=== PATIENT | female | born 1995 | race Caucasian/White ===

== ENCOUNTER → 2019-09-01 14:02 | Outpatient (CLI) | payer OTHER, SELFPAY ==
[2019-09-01 15:52] LABS: GTT (PREG) 1 Hour PP 50gm Dose 102 mg/dL (76-139)
== END ==
PROVIDERS: Visit Provider Family Medicine
DX: Z34.02 Encounter for supervision of normal first pregnancy, second trimester (principal)
CPT/HCPCS: 36415; 82950

== ENCOUNTER → 2019-10-27 14:09 | Outpatient (CLI) | payer OTHER, SELFPAY ==
[2019-10-28 13:20] LABS: Strep Grp B PCR NEG for Grp B Strep
== END ==
PROVIDERS: Visit Provider Family Medicine
DX: Z34.03 Encounter for supervision of normal first pregnancy, third trimester (principal); Z3A.36 36 weeks gestation of pregnancy
CPT/HCPCS: 87653

== ENCOUNTER 2019-11-10 11:00 | Observation (INO) | payer OTHER, SELFPAY ==
--- NOTE | 2019-11-10 11:07 | DI.US.S_ITS ---
PROCEDURE: US OB BIOPHYSICAL PROFILE INDICATIONS: Maternal hypertension. OUTSIDE/PRIOR DATING DATA: Last menstrual period (LMP): Unknown. LMP-based estimated date of delivery (BEULAH): Unknown. First dating scan (date and location): Unknown. Estimated date of delivery (BEULAH) from first dating scan: 11/23/2019. TECHNIQUE: Real-time scanning was performed of the fetus, with image documentation and biometric measurements. Biophysical profile was also obtained. Endovaginal scanning: Not performed COMPARISON: None available. FINDINGS: General: A single living intrauterine gestation is present. Presentation: Vertex. Placenta: Placental position is left fundal, without previa. Amniotic fluid index: 13.1 cm, normal range is 5-24 cm. (the largest pocket 5.9 cm posterior. heart rate: 135 beats per minute. Maternal cervical canal: Not well-seen. Estimated gestational age from initial scan: 38 weeks 1 day. Composite gestational age from present scan: N/A. Measurement variability for biometric dating: +/- 7 days from 14 weeks to 15 weeks 6 days gestation, +/- 10 days from 16 weeks to 21 weeks 6 days gestation, +/- 2 weeks from 22 weeks to 27 weeks 6 days gestation, +/- 3 weeks for 28 weeks gestation or later. weight reference: 4500 g or EFW >90/95% is considered macrosomia or large for gestational age. EFW <10% is small for gestational age. EFW 5% or less is considered intra-uterine growth restriction. Biophysical profile: Tone: 2 points. Movement: 2 points. Respiration: 2 points. Largest pocket of fluid: 2 points. IMPRESSION: 1. Odom living intrauterine at 38 weeks 1/7 days based on prior ultrasound. 2. Normal placenta and amniotic fluid. 3. Normal biophysical profile. Score 8 of 8. Dictated by: Aleksey Saunders M.D. on 11/10/2019 at 11:58 Approved by: Aleksey Saunders M.D. on 11/10/2019 at 12:07
[2019-11-10 11:58] LABS: Add Manual Diff / Slide Review NO; Basophils Absolute Auto 100 /uL (0-100); Basophils Percent Auto 0.5 % (0-2); Eosinophils Absolute Auto 200 /uL (0-450); Eosinophils Percent Auto 1.7 % (2-4); Hematocrit 35.4 % (36-46); Hemoglobin 11.9 g/dL (12.0-16.0); Lymphocytes Absolute Auto 1800 /uL (1100-4500); Lymphocytes Percent Auto 16.4 % (25-40); Mean Corpuscular HGB Conc 33.7 % (30-36); Mean Corpuscular Hemoglobin 28.3 PG (26-34); Mean Corpuscular Volume 84.1 fL (80-100); Monocytes Absolute Auto 800 /uL (0-900); Monocytes Percent Auto 7.2 % (3-14); Neutrophils Absolute Auto 8300 /uL (1500-7000); Neutrophils Percent Auto 74.2 % (50-75); Platelet Count 237 X10^3/uL (150-400); Red Blood Cell Count 4.21 X10^6/uL (4.0-5.2); Red Cell Distribution Width 13.1 % (11.6-14.8); White Blood Cell Count 11.2 X10^3/uL (4.5-11.0)
[2019-11-10 11:59] LABS: Appearance Urine UA SL CLOUDY; Bacteria Urine None Seen; Bilirubin Urine UA NEGATIVE (NEGATIVE); Color Urine UA YELLOW; Glucose Urine UA NEGATIVE (Negative); Ketones Urine UA NEGATIVE (NEGATIVE); Leukocyte Esterase Urine UA NEGATIVE (NEGATIVE); Nitrite Urine UA NEGATIVE (Negative); Occult Blood Urine UA NEGATIVE (Negative); Protein Urine UA NEGATIVE (Negative); RBC Urine None Seen (0-5/HPF); Urobilinogen Urine UA 0.2 E.U./dL (0.2); WBC Urine None Seen (0-5/HPF)
[2019-11-10 12:04] LABS: Amorphous Sediment Urine 1+; Squamous Epithelial Cell Urine 5-10 /HPF (0-5/HPF)
--- NOTE | 2019-11-10 12:09 | P.TNLD_ITS ---
[facility] Social History marital status: household members: spouse lives independently: Yes caregiver/support person: No housing: house occupational status: employed Smoking Status: Never smoker Objective Labs Result Diagrams: 11/10/19 11:50 11/10/19 11:50 Labs: Laboratory Results - last 24 hr 11/10/19 11/10/19 11:15 11:50 WBC 11.2 H RBC 4.21 Hgb 11.9 L Hct 35.4 L MCV 84.1 MCH 28.3 MCHC 33.7 RDW 13.1 Plt Count 237 Neut % (Auto) 74.2 Lymph % (Auto) 16.4 L [place] % (Auto) 7.2 Eos % (Auto) 1.7 L Baso % (Auto) 0.5 Neut # (Auto) 8300 H Lymph # (Auto) 1800 [place] # (Auto) 800 Eos # (Auto) 200 Baso # (Auto) 100 Urine Color Yellow Urine Appearance Sl cloudy Urine pH 7.0 Ur Specific [place] 1.020 Urine Protein Negative Urine Glucose (UA) Negative Urine Ketones Negative Urine Occult Blood Negative Urine Nitrate Negative Urine Bilirubin Negative Urine Urobilinogen 0.2 Ur Leukocyte Esterase Negative Urine RBC None seen Urine WBC None seen Ur Squamous Epith Cells 5-10 /hpf H Amorphous Sediment 1+ Urine Bacteria None seen Evaluation Evaluation Laboratory results: Laboratory Tests 11/10/19 11/10/19 11:15 11:50 WBC 11.2 H RBC 4.21 Hgb 11.9 L Hct 35.4 L MCV 84.1 MCH 28.3 MCHC 33.7 RDW 13.1 Plt Count 237 Neut % (Auto) 74.2 Lymph % (Auto) 16.4 L [place] % (Auto) 7.2 Eos % (Auto) 1.7 L Baso % (Auto) 0.5 Neut # (Auto) 8300 H Lymph # (Auto) 1800 [place] # (Auto) 800 Eos # (Auto) 200 Baso # (Auto) 100 Urine Color Yellow Urine Appearance Sl cloudy Urine pH 7.0 Ur Specific [place] 1.020 Urine Protein Negative Urine Glucose (UA) Negative Urine Ketones Negative Urine Occult Blood Negative Urine Nitrate Negative Urine Bilirubin Negative Urine Urobilinogen 0.2 Ur Leukocyte Esterase Negative Urine RBC None seen Urine WBC None seen Ur Squamous Epith Cells 5-10 /hpf H Amorphous Sediment 1+ Urine Bacteria None seen
[2019-11-10 12:10] LABS: Alanine Aminotransferase 11 IU/L (<35); Albumin 3.5 g/dL (3.5-5.0); Albumin Globulin Ratio 1.1 (1.0-2.8); Alkaline Phosphatase 131 U/L (38-126); Aspartate Aminotransferase 20 IU/L (14-36); Bilirubin Total 0.3 mg/dL (0.2-1.3); Blood Urea Nitrogen 8 mg/dL (7-17); Calcium 9.8 mg/dL (8.4-10.2); Carbon Dioxide 22 mmol/L (22-32); Chloride 105 mmol/L (98-107); Estimated Glomerular Filt Rate > 60.0 mL/min (>60); Globulin 3.3 g/dL (1.7-4.1); Glucose 74 mg/dL (70-100); HEMOLYSIS < 15 (0-50); Potassium 3.9 mmol/L (3.4-5.1); Sodium 134 mmol/L (137-145); Total Protein 6.8 g/dL (6.3-8.2)
[2019-11-10 12:14] LABS: Creatinine Urine Random 55.2 mg/dL; Protein (Total) Urine Random 23 mg/dL (0-12); Protein Creatinine Ratio Urine 0.41 GRAM/24H
--- NOTE | 2019-11-10 16:30 | P.TNLD_ITS ---
Visit Information Visit Information Date of evaluation: 11/10/19 Primary OB Provider: Jacque Lopez Reason for Evaluation: Yes non-stress test non-stress test reason: hypertension/pre-eclampsia Comments/Additional reasons for admission: 24yo at 38w1d here for NST and lab work due to elevated BP in clinic. Pt with intermittently mildly elevated BPs at home, although not consistent and often related to just coming in from walking outdoors. No headache, vision changes, RUQ pain, worsening swelling. She has overall been feeling well. No vaginal bleeding, LOF, contractions. Feeling baby move regularly. PFSH Social History marital status: household members: spouse lives independently: Yes caregiver/support person: No housing: house occupational status: employed Smoking Status: Never smoker Objective Labs Result Diagrams: 11/10/19 11:50 11/10/19 11:50 Labs: Laboratory Results - last 24 hr 11/10/19 11/10/19 11/10/19 11:15 11:15 11:50 WBC 11.2 H RBC 4.21 Hgb 11.9 L Hct 35.4 L MCV 84.1 MCH 28.3 MCHC 33.7 RDW 13.1 Plt Count 237 Neut % (Auto) 74.2 Lymph % (Auto) 16.4 L [place] % (Auto) 7.2 Eos % (Auto) 1.7 L Baso % (Auto) 0.5 Neut # (Auto) 8300 H Lymph # (Auto) 1800 [place] # (Auto) 800 Eos # (Auto) 200 Baso # (Auto) 100 Sodium Potassium Chloride Carbon Dioxide BUN Creatinine Estimated GFR BUN/Creatinine Ratio Glucose Calcium Total Bilirubin AST ALT Alkaline Phosphatase Total Protein Albumin Globulin Albumin/Globulin Ratio Urine Color Yellow Urine Appearance Sl cloudy Urine pH 7.0 Ur Specific [place] 1.020 Urine Protein Negative Urine Glucose (UA) Negative Urine Ketones Negative Urine Occult Blood Negative Urine Nitrate Negative Urine Bilirubin Negative Urine Urobilinogen 0.2 Ur Leukocyte Esterase Negative Urine RBC None seen Urine WBC None seen Ur Squamous Epith Cells 5-10 /hpf H Amorphous Sediment 1+ Urine Bacteria None seen U Random Total Protein 23 H Urine Creatinine 55.2 Protein/Creatinin Ratio 0.41 11/10/19 11:50 WBC RBC Hgb Hct MCV MCH MCHC RDW Plt Count Neut % (Auto) Lymph % (Auto) [place] % (Auto) Eos % (Auto) Baso % (Auto) Neut # (Auto) Lymph # (Auto) [place] # (Auto) Eos # (Auto) Baso # (Auto) Sodium 134 L Potassium 3.9 Chloride 105 Carbon Dioxide 22 BUN 8 Creatinine 0.40 L Estimated GFR > 60.0 BUN/Creatinine Ratio 20.0 Glucose 74 Calcium 9.8 Total Bilirubin 0.3 AST 20 ALT 11 Alkaline Phosphatase 131 H Total Protein 6.8 Albumin 3.5 Globulin 3.3 Albumin/Globulin Ratio 1.1 Urine Color Urine Appearance Urine pH Ur Specific [place] Urine Protein Urine Glucose (UA) Urine Ketones Urine Occult Blood Urine Nitrate Urine Bilirubin Urine Urobilinogen Ur Leukocyte Esterase Urine RBC Urine WBC Ur Squamous Epith Cells Amorphous Sediment Urine Bacteria U Random Total Protein Urine Creatinine Protein/Creatinin Ratio Evaluation Evaluation Baseline heart rate: 130 Variability: Moderate (11-25) monitor accelerations: Present monitor decelerations: Absent Laboratory results: Laboratory Tests 11/10/19 11/10/19 11/10/19 11:15 11:15 11:50 WBC 11.2 H RBC 4.21 Hgb 11.9 L Hct 35.4 L MCV 84.1 MCH 28.3 MCHC 33.7 RDW 13.1 Plt Count 237 Neut % (Auto) 74.2 Lymph % (Auto) 16.4 L [place] % (Auto) 7.2 Eos % (Auto) 1.7 L Baso % (Auto) 0.5 Neut # (Auto) 8300 H Lymph # (Auto) 1800 [place] # (Auto) 800 Eos # (Auto) 200 Baso # (Auto) 100 Sodium Potassium Chloride Carbon Dioxide BUN Creatinine Estimated GFR BUN/Creatinine Ratio Glucose Calcium Total Bilirubin AST ALT Alkaline Phosphatase Total Protein Albumin Globulin Albumin/Globulin Ratio Urine Color Yellow Urine Appearance Sl cloudy Urine pH 7.0 Ur Specific [place] 1.020 Urine Protein Negative Urine Glucose (UA) Negative Urine Ketones Negative Urine Occult Blood Negative Urine Nitrate Negative Urine Bilirubin Negative Urine Urobilinogen 0.2 Ur Leukocyte Esterase Negative Urine RBC None seen Urine WBC None seen Ur Squamous Epith Cells 5-10 /hpf H Amorphous Sediment 1+ Urine Bacteria None seen U Random Total Protein 23 H Urine Creatinine 55.2 Protein/Creatinin Ratio 0.41 11/10/19 11:50 WBC RBC Hgb Hct MCV MCH MCHC RDW Plt Count Neut % (Auto) Lymph % (Auto) [place] % (Auto) Eos % (Auto) Baso % (Auto) Neut # (Auto) Lymph # (Auto) [place] # (Auto) Eos # (Auto) Baso # (Auto) Sodium 134 L Potassium 3.9 Chloride 105 Carbon Dioxide 22 BUN 8 Creatinine 0.40 L Estimated GFR > 60.0 BUN/Creatinine Ratio 20.0 Glucose 74 Calcium 9.8 Total Bilirubin 0.3 AST 20 ALT 11 Alkaline Phosphatase 131 H Total Protein 6.8 Albumin 3.5 Globulin 3.3 Albumin/Globulin Ratio 1.1 Urine Color Urine Appearance Urine pH Ur Specific [place] Urine Protein Urine Glucose (UA) Urine Ketones Urine Occult Blood Urine Nitrate Urine Bilirubin Urine Urobilinogen Ur Leukocyte Esterase Urine RBC Urine WBC Ur Squamous Epith Cells Amorphous Sediment Urine Bacteria U Random Total Protein Urine Creatinine Protein/Creatinin Ratio Diagnosis, Plan/Disposition Final Diagnosis (1) Pre-eclampsia: Current Visit: No Status: Acute (2) 38 weeks gestation of : Current Visit: No Status: Acute Plan/Disposition Plan: Pt with elevated BPs and elevated protein/creatinine ratio, therefore meeting pre-eclampsia criteria. BPs have been minimally elevated, primarily after significant movement. BP did reach severe range during this encounter, however only immediately after having her blood drawn with a slight needle phobia. At 38 weeks, pt does need to be induced. Discussed this with the pt and her , and they are agreeable. Due to staffing, will induce starting with cytotec the evening of 11/13. Consent signed for the induction today. Pt will monitor her BPs at home BID until then. Encouraged her to rest for 5 minutes prior to taking. If elevated to severe range, or trending upwards, will contact us for consideration of emergent intervention. OB Disposition: home
== END 2019-11-10 13:25 | disposition home or self-care (01) ==
PROVIDERS: Admitting Provider Family Medicine; Visit Provider Family Medicine
DX: O14.93 Unspecified pre-eclampsia, third trimester (principal); Z3A.38 38 weeks gestation of pregnancy
CPT/HCPCS: 36415; 59025; 59050; 76819; 80053; 81001; 82570; 84156; 85025; G0378; G0379

== ENCOUNTER 2019-11-13 18:41 | Inpatient (IN) | payer OTHER, SELFPAY ==
[2019-11-13] MEDS: miSOPROStoL 25 MCG TABLET VAG (20:55)
[2019-11-13 20:58] LABS: Add Manual Diff / Slide Review NO; Basophils Absolute Auto 0 /uL (0-100); Basophils Percent Auto 0.4 % (0-2); Eosinophils Absolute Auto 200 /uL (0-450); Eosinophils Percent Auto 1.6 % (2-4); Hemoglobin 11.9 g/dL (12.0-16.0); Lymphocytes Absolute Auto 2200 /uL (1100-4500); Lymphocytes Percent Auto 19.3 % (25-40); Mean Corpuscular Hemoglobin 28.2 PG (26-34); Monocytes Absolute Auto 700 /uL (0-900); Monocytes Percent Auto 6.6 % (3-14); Neutrophils Absolute Auto 8200 /uL (1500-7000); Neutrophils Percent Auto 72.1 % (50-75); Platelet Count 230 X10^3/uL (150-400); Red Blood Cell Count 4.22 X10^6/uL (4.0-5.2); Red Cell Distribution Width 13.3 % (11.6-14.8); White Blood Cell Count 11.3 X10^3/uL (4.5-11.0)
[2019-11-13 21:09] LABS: Aspartate Aminotransferase 23 IU/L (14-36); Blood Urea Nitrogen 12 mg/dL (7-17); Estimated Glomerular Filt Rate > 60.0 mL/min (>60); Uric Acid 5.3 mg/dL (2.5-6.2)
[2019-11-13 23:05] VITALS: BP 133/78
[2019-11-14] MEDS: miSOPROStoL 25 MCG TABLET VAG (00:58)
[2019-11-14] MEDS: fentaNYL 100 MCG/2 ML INJ 50 MCG IV (06:48)
[2019-11-14] MEDS: LACTATED RINGERS 1,000 ML 100 ML IV (06:51)
--- NOTE | 2019-11-14 08:17 | P.HPOB_ITS ---
OB HPI Date/Time Date of admission: 11/13/19 Date Patient Seen: 11/14/19 Time Patient Seen: 07:45 History of Present Condition Chief complaint: Induction : 1 Para: 0 Estimated Date of Delivery: 11/23/19 Estimated Gestational Age (weeks): 38w5d Narrative: Mercy Krishnamurthy is a 24 year old at 38w5d who presented for IOL due to pre-eclampsia. The pt was diagnosed with pre-eclampsia on 11/10 with elevated BP and elevated protein/creatinine ratio. Induction was delayed due to staffing. She did not have any signs/symptoms of severe pre-eclampsia at that time. The pt today reports that over the weekend her BPs were initially in the 110-120 range, but then yesterday jaron again to the 140/80s She continues to deny any vision changes, headaches, RUQ abdominal pain, or acute worsening of edema. She has been feeling her baby move regularly. No LOF or vaginal bleeding. Indications Indication for induction OB: history of rapid labor and other (pre-eclampsia) History of Present care: good care Dating criteria: LMP confirmed by 1st trimester US Ultrasounds: normal 1st trimester US and normal mid trimester US Obstetrical complications: preeclampsia Medical complications: none Preadmission Labs Blood type: A (+) positive -: Antibody screen: negative, GBS status: negative, HBsAG: negative, HIV: negative and RPR/VDLR: negative -: Chlamydia screen: not detected and Gonorrhea screen: not detected -: Rubella: immune and Varicella: immune HCT: 35.5 1 hr GTT: 102 Evaluation Evaluation Baseline heart rate: 140 Variability: Moderate (11-25) monitor accelerations: Present monitor decelerations: Absent Contraction Frequency (minutes): 3 Uterine Contraction Intensity: Strong/Firm Category of Tracing: I Cervical dilation (cm): 3 Cervical effacement (%): 90 station: -1 Laboratory results: Laboratory Tests 11/13/19 11/13/19 11/13/19 20:45 20:45 20:45 WBC 11.3 H RBC 4.22 Hgb 11.9 L Hct 35.0 L MCV 83.0 MCH 28.2 MCHC 34.0 RDW 13.3 Plt Count 230 Neut % (Auto) 72.1 Lymph % (Auto) 19.3 L [place] % (Auto) 6.6 Eos % (Auto) 1.6 L Baso % (Auto) 0.4 Neut # (Auto) 8200 H Lymph # (Auto) 2200 [place] # (Auto) 700 Eos # (Auto) 200 Baso # (Auto) 0 BUN 12 Creatinine 0.60 Estimated GFR > 60.0 BUN/Creatinine Ratio 20.0 Uric Acid 5.3 AST 23 Blood Type A Positive Antibody Screen Negative PFSH Social History marital status: household members: spouse lives independently: Yes caregiver/support person: No housing: house occupational status: employed Smoking Status: Never smoker Meds Home Medications and Allergies Home Medications Medication Instructions Recorded Confirmed Type prenat.vits,bethany,egb-[id number] 1 tab PO DAILY 08/21/19 11/14/19 History breast pump #1 each 09/28/19 11/01/19 Rx Allergies Allergy/AdvReac Type Severity Reaction Status Date / Time No Known Drug Allergies Allergy Verified 11/01/19 13:46 Exam Narrative Exam Narrative: Gen: laying in bed, moaning with contractions and breathing through them, appears very uncomfortable CV: RRR, no murmurs Resp: clear to auscultation bilaterally Abd: soft, nontender, gravid Ext: 1+ edema bilaterally Objective Labs Result Diagrams: 11/13/19 20:45 11/13/19 20:45 Labs: Laboratory Results - last 24 hr 11/13/19 11/13/19 11/13/19 20:45 20:45 20:45 WBC 11.3 H RBC 4.22 Hgb 11.9 L Hct 35.0 L MCV 83.0 MCH 28.2 MCHC 34.0 RDW 13.3 Plt Count 230 Neut % (Auto) 72.1 Lymph % (Auto) 19.3 L [place] % (Auto) 6.6 Eos % (Auto) 1.6 L Baso % (Auto) 0.4 Neut # (Auto) 8200 H Lymph # (Auto) 2200 [place] # (Auto) 700 Eos # (Auto) 200 Baso # (Auto) 0 BUN 12 Creatinine 0.60 Estimated GFR > 60.0 BUN/Creatinine Ratio 20.0 Uric Acid 5.3 AST 23 Blood Type A Positive Antibody Screen Negative Assessment and Plan Assessment and Plan Assessment and Plan narrative: 24yo at 38w5d here for IOL for pre-eclampsia without severe features. Received 2 doses of cytotec overnight with good prog ress. Now with regular painful contractions. - Expectant management, anticipate - Epidural for pain control now - FHT reassuring - GBS negative, no antibiotics indicated - Continue to closely monitor BPs. Only elevated to severe range overnight when in significant pain. If persistently in severe range, will treat and start MgSO4 - Will recheck cervix in 1 hour. If no cervical change, plan to start pitocin.
--- NOTE | 2019-11-14 13:28 | PM.OBPNLAB ---
Date/Time Date Patient Seen: 11/14/19 Time Patient Seen: 12:30 Pain Control Pain control: epidural Pelvic Exam Dilation (cm): 10 Effacement (%): 100 station: 0 Amniotic membrane status: Ruptured Contractions Monitor mode: External Contraction frequency (min): 3 Contraction intensity: Strong/Firm Status status: Category l Heart Rate Baseline: 140 Monitor Accelerations: Present Monitor Decelerations: Absent Monitor Variability: Moderate Assessment and Plan Comments: 24yo at 38w5d here for IOL for pre-eclampsia without severe features. Received 2 doses of cytotec overnight with good progress. Now with regular painful contractions, and progression to complete without additional augmentation. AROM performed on cervical exam incidentally. - Expectant management, anticipate - Epidural for pain control - FHT reassuring - GBS negative, no antibiotics indicated - Continue to closely monitor BPs.
--- NOTE | 2019-11-14 16:49 | P.PCNOB_ITS ---
Events: Pre-Eclampsia Labor & Delivery Delivery date: 11/14/19 Cervical ripening method: per misoprostal protocol Delivery augmentation: rupture of membranes Delivery monitor: external FHT Route of delivery: Episiotomy description: None L&D Laceration Description: Perineal - 2nd Degree Delivery repair: chromic Estimated blood loss (mL): 800 Anesthesia type: Epidural Complications: hemorrhage due to laceration Narrative: PROCEDURE: at 38w4d presented for IOL and was admitted to Labor and Delivery. The patient progressed through the 1st stage over 6.5 hours. She received 2 doses of cytotec for induction. The pt then progresses into active labor without additional intervention. Pain was controlled with an epidural. AROM was performed at 10cm dilation. The patient progressed through the 2nd stage over 2 hours and delivered a viable female infant with APGARs 9/10 at 15:48 via without complications. The perineum and vagina were inspected with 2nd degree perineal laceration with brisk bleeding. This was repaired with 3-O Chromic with hemostasis noted. PREPROCEDURE DIAGNOSIS: Intrauterine at 38w4d Pre-eclampsia GBS negative RH positive POSTPROCEDURE DIAGNOSIS: Intrauterine at 38w5d, delivered Same as preprocedure ROM APPEARANCE: Clear BABY A WEIGHT: 6lb13.3oz, 3094g BABY A NUCHAL CORD: None PLACENTA DELIVERY TIME: 15:55 PLACENTA APPEARANCE: Intact [place] Baby 1: Infant gender: Female Presentation: vertex position: Right Occiput Anterior Placenta delivery description: Spontaneous cord vessel description: 3 Vessels score (1 min): 9 score (5 min): 10 Plan for aftercare: Normal care
[2019-11-14] MEDS: DERMOPLAST SPRAY 20% 60 ML 1 SPRAY TOP (21:46)
[2019-11-14] MEDS: IBUPROFEN 600 MG TABLET PO (23:54)
[2019-11-14] MEDS: OXYCODONE/ACETAMINOPHEN 5/325 TABLET 1 TAB PO (23:55)
[2019-11-14] MEDS: LANOLIN OINT 7 GM 1 APPLIC TOP (23:56)
[2019-11-15] MEDS: OXYCODONE/ACETAMINOPHEN 5/325 TABLET 1 TAB PO (04:21)
[2019-11-15 07:14] LABS: Hematocrit 26.7 % (36-46); Hemoglobin 9.5 g/dL (12.0-16.0)
[2019-11-15] MEDS: PRENATAL VIT,CALC/IRON/FOLIC 1 TABLET 1 TAB PO (08:31)
[2019-11-15] MEDS: DOCUSATE 100 MG CAPSULE PO (08:31)
[2019-11-15] MEDS: IBUPROFEN 600 MG TABLET PO ×2 (08:31→14:00)
[2019-11-15 13:35] VITALS: BP 133/78; PULSE 78; RESP 18; TEMP 36.9
--- NOTE | 2019-11-15 13:35 | P.DS_ITS ---
Discharge Providers Provider Date of admission: 11/13/19 18:41 Discharge Date: 11/15/19 Consults: 11/15/19 16:44 Consult to Hand Hide Stretcher Routine Comment: Discharge provider: Jacque Lopez MD Summary Hospital Course Date Patient Seen: 11/15/19 Time Patient Seen: 07:45 Procedures: Spontaneous vaginal delivery Hospital Course: The patient presented to labor and delivery for induction of labor due to preeclampsia. She received 2 doses of Cytotec. She then progressed into active labor without additional intervention. The patient received an epidural for pain control. She progressed to complete, and delivered a viable baby girl on 11/14/2019 at 3:48 p.m.. A second-degree laceration was then repaired. , there were no complications. At the time of discharge she was void ing, ambulating, passing flatus without difficulty. Her pain was adequately controlled. Her lochia was decreasing appropriately. Her blood pressure remained normotensive. She will f/u in clinic in 6 weeks for check. [place] [employer] Peripartum Data Infant Delivery Method: Natural Vaginal Laceration description: Perineal - 2nd Degree Episiotomy description: None Procedures: Spontaneous vaginal delivery complications: none 1: Gender: Female Disposition of : home Discharge Diagnosis (1) Pre-eclampsia: Status: Acute (2) Status post vaginal delivery: Status: Acute Status at Discharge Cognitive/behavioral status at discharge: oriented Functional status at discharge: independent ambulation Overall status at discharge: patient is progressing back to baseline Time Spent with Patient Time attestation: Total time spent providing and/or coordinating discharge services: Time spent: Greater than 30 minutes Objective Labs Result Diagrams: 11/15/19 06:30 11/13/19 20:45 Labs: Laboratory Results - last 24 hr 11/15/19 06:30 Hgb 9.5 L Hct 26.7 L Exam Narrative Exam Narrative: General: No acute distress, sitting comfortably in bed, appears well CV: Regular rate and rhythm however numerous likely respiratory: Clear to auscultation bilaterally Abdomen: Soft, nontender, fundus firm below the umbilicus, normoactive bowel sounds Extremities: Trace edema Discharge Plan Discharge Plan Patient Disposition: Home Discharge orders & Medications Prescriptions: New acetaminophen 325 mg Tablet 650 mg PO Q6HR PRN (Reason: Pain, Mild (1-3)) Qty: 30 RF: 0 Dermoplast (with menthol) 20-0.5 % Aerosol 1 spray topical Q1HR PRN (Reason: perineal pain) Qty: 15 RF: 0 docusate sodium [DOK] 100 mg Capsule 100 mg PO DAILY Qty: 30 RF: 0 ibuprofen 600 mg Tablet 600 mg PO Q6HR PRN (Reason: Pain, Mild (1-3)) Qty: 30 RF: 0 Zqs-S-Khswib Cream 1 applic topical PRN PRN (Reason: Tenderness) Qty: 15 RF: 0 Continued (DME) breast pump Device See Rx Instructions .ROUTE .MEDSUPPLY Qty: 1 RF: 0 prenat.vits,bethany,kpu-lydc-[id number] Tablet 1 tab PO DAILY RF: 0 Follow up/Referrals: Jacque Lopez MD [Physician] - 12/26/19 11:15 am (Check in 15 minutes prior to appointment) Visit Report/Discharge Packet Instructions: DI for Labor and Delivery, Vaginal Stand Alone Forms: Discharge: Care Visit Report Forms: Patient Portal/API, Stroke Signs & Symptoms
== END 2019-11-15 17:30 | disposition home or self-care (01) | DRG 807 ==
PROVIDERS: Admitting Provider Family Medicine; Visit Provider Family Medicine
DX: O14.04 Mild to moderate pre-eclampsia, complicating childbirth (principal); Z37.0 Single live birth; Z3A.38 38 weeks gestation of pregnancy; O70.1 Second degree perineal laceration during delivery
CPT/HCPCS: 01967; 36415; 59050; 59200; 59410; 84450; 84550; 85014; 85018; 85025; 86850; 86900; 86901; G0379; J3010

== ENCOUNTER 2021-06-11 09:44 | Emergency (ER) | payer OTHER, SELFPAY ==
[2021-06-11 09:50] VITALS: BP 125/68; PULSE 92; RESP 14; TEMP 37.8; O2SAT 99
[2021-06-11 10:19] VITALS: TEMP 37.7
[2021-06-11] MEDS: ACETAMINOPHEN 325 MG TABLET 650 MG PO (10:19)
[2021-06-11] MEDS: IBUPROFEN SUSP 100 MG/5 ML UDC 600 MG PO (10:19)
[2021-06-11 10:45] LABS: COVID19 -Nasal RAPID Negative (Negative)
--- NOTE | 2021-06-11 11:04 | ED.GENADULT ---
HPI - General Adult General Chief complaint: Upper Respiratory Symptoms Stated complaint: Poss Strep Throat Time Seen by Provider: 06/11/21 10:33 Source: patient Mode of arrival: Ambulatory Limitations: no limitations History of Present Illness HPI narrative: Patient is an otherwise healthy 25-year-old female here for evaluation of a sore throat, white patches in the back of her throat, pain in her left ear, no cough, and subjective fevers for the past couple days. She has been doing oral sore throat medications with only minimal relief. She does have pain with swallowing. No problems breathing. No skin rashes. Related Data Home Medications Medication Instructions Recorded Confirmed prenat.vits,bethany,[id number] 1 tab PO DAILY 08/21/19 11/14/19 Allergies Allergy/AdvReac Type Severity Reaction Status Date / Time No Known Drug Allergies Allergy Verified 06/11/21 09:53 Review of Systems Constitutional Comments: Subjective fevers ENT Ears, Nose, Mouth, and Throat: Reports as per HPI Respiratory Respiratory: Reports system reviewed and no additional complaints, except as documented Gastrointestinal Gastrointestinal: Reports system reviewed and no additional complaints, except as documented Genitourinary Genitourinary: Reports system reviewed and no additional complaints, except as documented Neurologic Neurologic: Reports system reviewed and no additional complaints, except as documented Hematologic/Lymphatic On Anticoagulants: No Patient History Surgical History (Updated 11/15/19 @ 16:30 by Jacque Lopez MD) Status post vaginal delivery [place] teeth removed Family History Mother Lung cancer Social History marital status: household members: spouse lives independently: Yes caregiver/support person: No housing: house occupational status: employed Smoking Status: Never smoker Smoking Status: Never smoker alcohol intake frequency: 0-2 drinks per day Substance Use Type: does not use Exam Initial Vital Signs Initial Vital Signs: Vital Signs Temperature 100.0 F H 06/11/21 09:50 Pulse Rate 92 H 06/11/21 09:50 Respiratory Rate 14 06/11/21 09:50 Blood Pressure 125/68 06/11/21 09:50 Pulse Oximetry 99 06/11/21 09:50 Const General: cooperative, healthy appearing and comfortable HENMT Head: normal to inspection Ears: TM normal on the right, EAC's normal and TM abnormal bulging on the left Mouth: oral mucosae normal Throat: postnasal drainage and no uvular edema Neck Lymphatic: lymphadenopathy Resp Effort & Inspection: normal respiratory effort Auscultation: clear to auscultation bilaterally Skin General: no rashes or lesions noted Neuro General: patient alert, patient awake and moves all extremities Extrem General: normal to inspection and capillary refill normal Course Orders Ordered: ED Orders 06/11/21 09:56 COVID19 -Nasal swab/Pre-Proc Stat Throat Culture Stat Discontinued Medications Acetaminophen (Acetaminophen 325 Mg Tablet) 650 mg PO NOW ONE Stop: 06/11/21 10:05 Last Admin: 06/11/21 10:19 Dose: 650 mg Documented by: YAHIR Dexamethasone (Dexamethasone 4 Mg Tablet) 12 mg PO NOW ONE Stop: 06/11/21 11:05 Ibuprofen (Ibuprofen Susp 100 Mg/5 Ml Udc) 600 mg PO NOW ONE Stop: 06/11/21 10:05 Last Admin: 06/11/21 10:19 Dose: 600 mg Documented by: YAHIR Penicillin G Benzathine (Penicillin G Benzathine 1,200,000 Unit/2 Ml Syringe) 1,200,000 unit IM NOW ONE Stop: 06/11/21 11:05 Vital Signs Vital signs: Vital Signs - 8 hr 06/11/21 09:50 06/11/21 10:19 Temperature 100.0 F H 100 F H Pulse Rate 92 H Respiratory Rate 14 Blood Pressure 125/68 Pulse Oximetry 99 Medical Decision Making Lab Data Labs: Lab Results 06/11/21 Range/Units 09:56 SARS-CoV-2 (PCR) Negative (Negative) Point of Care Testing Rapid Strep A Negative Point of care testing: Point of Care Testing Rapid Strep A Negative MDM Narrative Medical decision making narrative: No respiratory distress, rapid strep was negative however patient does have a physical exam that is very consistent with strep throat. She does have exudates, she has no cough, subjective fevers, lymphadenopathy and also has halitosis consistent with strep throat. I did discuss options to include presumptively treating her with antibiotics in the risks and benefits of this verses obtaining a throat culture and the risks and benefits of this. After this discussion the patient did opt for antibiotic treatment. Offered her an IM injection verses oral antibiotics and she opted for the IM injection. Will also give steroids. She was given return precautions. No indication of retropharyngeal abscess/peritonsillar abscess today. She expressed understanding and agreement this plan. COVID is negative. Discharge Plan Departure Patient Disposition: Home Clinical Impression: Pharyngitis Instructions: Sore Throat Activity Restrictions/Additional Instructions: We did presumptively treat you today for strep throat. You should receive some improvement in your symptoms over the next 1-3 days. If your symptoms continue to worsen or your problems breathing please return to the emergency department for any new or worsening symptoms. Prescriptions: No Action prenat.vits,bethany,[id number] Tablet 1 tab PO DAILY RF: 0
[2021-06-11] MEDS: PENICILLIN G BENZATHINE 1,200,000 UNIT/2 ML SYRINGE 1200000 UNIT IM (11:13)
[2021-06-11] MEDS: dexAMETHasone 4 MG TABLET 12 MG PO (11:14)
[2021-06-11 11:38] VITALS: PULSE 80; RESP 16; TEMP 37.5; O2SAT 100
== END 2021-06-11 11:39 | disposition home or self-care (01) ==
PROVIDERS: Emergency Provider Emergency Medicine
DX: J02.9 Acute pharyngitis, unspecified (principal); Z20.822 Contact with and (suspected) exposure to COVID-19
CPT/HCPCS: 87070; 87077; 87147; 87635; 87880; 96372; 99283; C9803; J0561

== ENCOUNTER → 2022-01-06 12:12 | Outpatient (CLI) | payer OTHER, SELFPAY ==
[2022-01-06 13:01] LABS: Add Manual Diff / Slide Review NO; Appearance Urine UA CLEAR; Basophils Absolute Auto 0 /uL (0-100); Basophils Percent Auto 0.3 % (0-2); Bilirubin Urine UA NEGATIVE (NEGATIVE); Color Urine UA YELLOW; Eosinophils Absolute Auto 300 /uL (0-450); Eosinophils Percent Auto 3.7 % (2-4); Glucose Urine UA NEGATIVE (Negative); Hematocrit 37.4 % (36-46); Hemoglobin 12.7 g/dL (12.0-16.0); Ketones Urine UA NEGATIVE (NEGATIVE); Leukocyte Esterase Urine UA NEGATIVE (NEGATIVE); Lymphocytes Absolute Auto 1900 /uL (1100-4500); Lymphocytes Percent Auto 23.6 % (25-40); Mean Corpuscular HGB Conc 33.9 % (30-36); Mean Corpuscular Hemoglobin 29.1 PG (26-34); Mean Corpuscular Volume 85.9 fL (80-100); Monocytes Absolute Auto 400 /uL (0-900); Neutrophils Absolute Auto 5400 /uL (1500-7000); Neutrophils Percent Auto 67.4 % (50-75); Nitrite Urine UA NEGATIVE (Negative); Occult Blood Urine UA NEGATIVE (Negative); Platelet Count 292 X10^3/uL (150-400); Protein Urine UA NEGATIVE (Negative); Red Blood Cell Count 4.36 X10^6/uL (4.0-5.2); Specific Gravity Urine UA <=1.005 (1.000-1.035); Urobilinogen Urine UA 0.2 E.U./dL (0.2); White Blood Cell Count 8.1 X10^3/uL (4.5-11.0)
[2022-01-06 13:03] LABS: pH Urine UA 6.5 (4.5-8.0)
[2022-01-06 15:42] LABS: Hepatitis B Surface Antigen NEGATIVE s/c (NEGATIVE); Rubella Antibody IgG 78.2 IU/mL (>15)
[2022-01-06 15:55] LABS: HIV 1 & 2 Ab/Ag 4th Gen Combo NEGATIVE (NEGATIVE); Hep C Virus Ab w/Reflex Quant NEGATIVE s/c (NEGATIVE)
[2022-01-07 10:51] LABS: RPR Screen Non Reactive (Non Reactive); Varicella IgG Antibody 1234 index (Immune >165)
[2022-01-08 21:32] LABS: AFP, Serum 29.5 ng/mL (.); Estriol, Free 0.75 ng/mL (.); Inhibin A, Dimeric 130.85 pg/mL (.); Inhibin A, MoM 0.79 (.); Maternal Ethnicity Caucasian (.); Maternal Weight 147 lbs (.); Number of Fetuses No (.); OSBR Risk 1 IN 10000 (.); Results Report (.); Test Results *Screen Negative* (.); hCG, MoM 0.86 (.); hCG, Serum 39648 mIU/mL (.)
== END ==
PROVIDERS: Referring Provider Family Medicine; Visit Provider Family Medicine
DX: Z34.80 Encounter for supervision of other normal pregnancy, unspecified trimester (principal)
CPT/HCPCS: 36415; 80055; 81003; 82105; 82677; 84702; 86336; 86787; 86803; 86850; 86900; 86901; 87086; 87389

== ENCOUNTER → 2022-01-16 13:27 | Outpatient (CLI) | payer OTHER, SELFPAY ==
[2022-01-16 14:21] LABS: Appearance Urine UA SL CLOUDY; Bilirubin Urine UA NEGATIVE (NEGATIVE); Color Urine UA YELLOW; Glucose Urine UA TRACE g/dL (Negative); Ketones Urine UA TRACE (NEGATIVE); Leukocyte Esterase Urine UA NEGATIVE (NEGATIVE); Nitrite Urine UA NEGATIVE (Negative); Occult Blood Urine UA NEGATIVE (Negative); Protein Urine UA NEGATIVE (Negative); Urobilinogen Urine UA 0.2 E.U./dL (0.2)
[2022-01-16 14:41] LABS: pH Urine UA 5.5 (4.5-8.0)
[2022-01-16 14:42] LABS: RBC Urine None Seen (0-5/HPF); Squamous Epithelial Cell Urine 10-30 /HPF (0-5/HPF); WBC Urine 1-5/HPF (0-5/HPF)
[2022-01-16 14:43] LABS: Bacteria Urine Many (>30); Culture Indicated Urine Cult Not Indicated
== END ==
PROVIDERS: Referring Provider Family Medicine; Visit Provider Family Medicine
DX: R82.90 Unspecified abnormal findings in urine (principal); Z34.90 Encounter for supervision of normal pregnancy, unspecified, unspecified trimester
CPT/HCPCS: 81001; 87086

== ENCOUNTER → 2022-04-16 13:22 | Outpatient (CLI) | payer OTHER, SELFPAY ==
[2022-04-16 15:04] LABS: Add Manual Diff / Slide Review NO; Basophils Absolute Auto 0 /uL (0-100); Basophils Percent Auto 0.2 % (0-2); Eosinophils Absolute Auto 200 /uL (0-450); Eosinophils Percent Auto 2.1 % (2-4); Hematocrit 34.7 % (36-46); Hemoglobin 11.8 g/dL (12.0-16.0); Lymphocytes Absolute Auto 1800 /uL (1100-4500); Lymphocytes Percent Auto 20.3 % (25-40); Mean Corpuscular Hemoglobin 28.6 PG (26-34); Mean Corpuscular Volume 84.1 fL (80-100); Monocytes Absolute Auto 500 /uL (0-900); Monocytes Percent Auto 5.9 % (3-14); Neutrophils Absolute Auto 6400 /uL (1500-7000); Neutrophils Percent Auto 71.5 % (50-75); Platelet Count 285 X10^3/uL (150-400); Red Blood Cell Count 4.12 X10^6/uL (4.0-5.2); Red Cell Distribution Width 13.1 % (11.6-14.8)
[2022-04-16 15:34] LABS: GTT (PREG) 1 Hour PP 50gm Dose 136 mg/dL (76-139)
== END ==
PROVIDERS: Referring Provider Family Medicine; Visit Provider Family Medicine
DX: Z34.92 Encounter for supervision of normal pregnancy, unspecified, second trimester (principal); Z3A.24 24 weeks gestation of pregnancy
CPT/HCPCS: 36415; 82950; 85025

== ENCOUNTER → 2022-05-29 11:30 | Outpatient (CLI) | payer OTHER, SELFPAY ==
[2022-05-30 07:37] LABS: Strep Grp B PCR NEG for Grp B Strep
== END ==
PROVIDERS: Visit Provider Family Medicine
DX: Z34.93 Encounter for supervision of normal pregnancy, unspecified, third trimester (principal); Z3A.36 36 weeks gestation of pregnancy
CPT/HCPCS: 87653

== ENCOUNTER → 2022-06-05 11:01 | Outpatient (CLI) | payer OTHER, SELFPAY ==
--- NOTE | 2022-06-05 11:03 | DI.US.S_ITS ---
PROCEDURE: US OB FOLLOW UP INDICATIONS: size < dates OUTSIDE/PRIOR DATING DATA: First dating scan (date and location): 03/25/2022 Estimated date of delivery (BEULAH) from first dating scan: 06/22/2020 The calculations are made using the ultrasound BEULAH of 06/22/2022 TECHNIQUE: Real-time scanning was performed of the fetus, with image documentation and biometric measurements. Endovaginal scanning: Not performed COMPARISON: [facility] Ultrasound, US, US OB > 14 WEEKS COMPLETE ANATOMY, 03/25/2022, 9:12. FINDINGS: General: A single living intrauterine gestation is present. Presentation: Cephalic Placenta: Placental position is posterior, without previa. Amniotic fluid index: 8.1 cm, normal range is 5-24 cm. Single deepest vertical pocket is 2.5 cm. heart rate: 157 beats per minute. Maternal cervical canal: Not well seen, but the internal cervical os appears closed. biometrics: Biparietal diameter: 9.23 cm, 37 weeks 3 days Head circumference: 32.76 cm, 37 weeks 1 day Abdominal circumference: 33.15 cm, 37 weeks 0 days Femur length: 7.33 cm, 37 weeks 4 days Clinically estimated gestational age: 37 weeks 4 days Composite gestational age from present scan: 37 weeks 2 days Estimated weight and percentile: 3155 g, 51st percentile Other: Not applicable. IMPRESSION: 1. Single live intrauterine with appropriate interval growth. 2. Estimated weight is 3155 g, 51st percentile for gestational age. We strive to produce accurate, complete, and clear reports of imaging services. To assist us in improving patient care, this report was composed using standard report templates and voice recognition software. Therefore, it may contain abnormal punctuation, insertions and/or omissions. Occasional wrong-word or sound-alike substitutions may occur. Though we review the report and make efforts to correct it, we do recommend that the report be read carefully in proper context to recognize any text inaccuracies. Dictated by: Damion Forrest M.D. on 06/05/2022 at 13:36 Approved by: Damion Forrest M.D. on 06/05/2022 at 13:40
== END ==
PROVIDERS: Referring Provider Family Medicine; Visit Provider Family Medicine
DX: O26.843 Uterine size-date discrepancy, third trimester (principal); Z3A.37 37 weeks gestation of pregnancy
CPT/HCPCS: 76816

== ENCOUNTER 2022-06-21 07:05 | Inpatient (IN) | payer OTHER, SELFPAY ==
[2022-06-21] MEDS: LACTATED RINGERS 1,000 ML 100 ML IV ×2 (07:30→08:55)
[2022-06-21 07:44] LABS: Add Manual Diff / Slide Review NO; Basophils Absolute Auto 0 /uL (0-100); Basophils Percent Auto 0.5 % (0-2); Eosinophils Absolute Auto 200 /uL (0-450); Eosinophils Percent Auto 1.8 % (2-4); Hematocrit 36.1 % (36-46); Hemoglobin 12.2 g/dL (12.0-16.0); Lymphocytes Absolute Auto 2300 /uL (1100-4500); Lymphocytes Percent Auto 24.4 % (25-40); Mean Corpuscular HGB Conc 33.8 % (30-36); Mean Corpuscular Volume 79.7 fL (80-100); Monocytes Absolute Auto 700 /uL (0-900); Monocytes Percent Auto 7.5 % (3-14); Neutrophils Absolute Auto 6100 /uL (1500-7000); Neutrophils Percent Auto 65.8 % (50-75); Platelet Count 253 X10^3/uL (150-400); Red Blood Cell Count 4.53 X10^6/uL (4.0-5.2); Red Cell Distribution Width 13.2 % (11.6-14.8); White Blood Cell Count 9.3 X10^3/uL (4.5-11.0)
[2022-06-21 07:58] LABS: COVID19 -Nasal RAPID Negative (Negative)
[2022-06-21] MEDS: fentaNYL 100 MCG/2 ML INJ (08:05)
--- NOTE | 2022-06-21 09:11 | PM.OBHP.IH.1 ---
OB HPI Date/Time Date of admission: 06/21/22 Date Patient Seen: 06/21/22 Time Patient Seen: 09:11 History of Present Condition Chief complaint: BEULAH Calculator Estimated Delivery Date Method Current WG Current Estimate 06/25/22 LMP (Certain) 39w 3d Estimated Gestational Age (weeks): 39w3d : 2 Para: 1 Narrative: 26yo at 39w3d here for due to regular contractions. Pt reports contractions started around 1am, increased in intensity significantly at 3:30am. She denies any vaginal bleeding or LOF. She has been feeling her baby move regularly. Her has been uncomplicated. Previous with pre-eclampsia, but BPs have remained in good range throughout this . care: good care, initiated at week # (15) and pounds weight gain (33) Dating criteria OB: LMP confirmed by 1st trimester US Ultrasounds: normal 1st trimester US and normal mid trimester US Obstetrical complications: none Medical complications OB: none Preadmission Labs Last OB Lab Results: Blood Type A Positive 06/21/22 07:30 Antibody Screen Negative 06/21/22 07:30 Hematocrit 36.1 % (36-46) 06/21/22 07:30 Hemoglobin 12.2 g/dL (12.0-16.0) 06/21/22 07:30 Hepatitis B Surface Antigen Negative s/c (NEGATIVE) 01/06/22 12:21 Hepatitis C Antibody Negative s/c (NEGATIVE) 01/06/22 12:21 Rubella Antibody 78.2 IU/mL (>15) 01/06/22 12:21 Varicella-Zoster IgG Antibody 1234 index (Immune >165) 01/06/22 12:21 Glucose 1 Hour 136 mg/dL (76-139) 04/16/22 13:25 Group B Streptococcus (PCR) Neg for grp b strep 05/29/22 11:30 -: Urine: negative Genetic Screens: Quad screen: Normal External Labs -: Urine: negative Prior (ies) Past Pregnancies Del. Date GA/Weeks Labor Lgth Wt Sex Route Outcome Anesthesia Place Delv Breastfeed Preg Comp Name 11/14/19 38 1 6 lb Female vaginal live - full term epidural IH 1 yr pre-eclampsia Yeny Delivery Date: 11/14/19 Last Updated by: Fariha Canchola RAubree Induced due to preeclampsia Evaluation Evaluation Baseline heart rate: 140 Variability: Moderate (11-25) monitor accelerations: Present Monitor Decelerations: Absent Contraction Frequency (minutes): 2 Uterine Contraction Intensity: Strong/Firm Status: Category l Dilation (cm): 10 Effacement (%): 100 station: +1 [facility] Medical History (Updated 01/07/22 @ 02:30 by Jacque Lopez MD) Pre-eclampsia Surgical History (Updated 11/15/19 @ 16:30 by Jacque Lopez MD) Status post vaginal delivery [place] teeth removed Family History Mother Lung cancer Social History marital status: household members: spouse and children lives independently: Yes caregiver/support person: No housing: house pets and animals: Yes (Dog) education level: high school occupational status: employed current occupational exposures/hazards: Yes (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) seatbelt use: always water heater temp set < 120 deg: Yes working smoke detector in home: Yes fire extinguisher in home: Yes carbon monox detector in home: Yes firearms in home: No do you feel safe at home: Yes Smoking Status: Never smoker second hand exposure: No alcohol intake: former substance use type: does not use during the past year weight has: remained stable well-balanced diet: daily or most days daily servings fruits/ve-4 caffeine: No Type(s) of exercise: walking frequency: daily Meds Home Medications and Allergies Home Medications Medication Instructions Recorded Confirmed Type prenat.vits,bethany,[id number] 1 tab PO DAILY 08/21/19 06/16/22 History aspirin 81 mg tablet,delayed 81 mg PO DAILY #90 tabs 01/06/22 06/16/22 Rx release fluconazole 150 mg tablet 150 mg PO ONCE #1 tab 01/22/22 06/16/22 Rx (Diflucan) Allergies Allergy/AdvReac Type Severity Reaction Status Date / Time No Known Drug Allergies Allergy Verified 06/16/22 10:30 OB Exam Narrative Exam Narrative: Gen: NAD, sitting comfortably in bed, appears well CV: RRR, no murmurs Resp: clear to auscultation bilaterally Abd: soft, nontender, gravid Ext: no edema Objective Labs Result Diagrams: 06/21/22 07:30 Labs: Laboratory Results - last 24 hr 06/21/22 06/21/22 06/21/22 07:30 07:30 07:30 WBC 9.3 RBC 4.53 Hgb 12.2 Hct 36.1 MCV 79.7 L MCH 27.0 MCHC 33.8 RDW 13.2 Plt Count 253 Neut % (Auto) 65.8 Lymph % (Auto) 24.4 L [place] % (Auto) 7.5 Eos % (Auto) 1.8 L Baso % (Auto) 0.5 Neut # (Auto) 6100 Lymph # (Auto) 2300 [place] # (Auto) 700 Eos # (Auto) 200 Baso # (Auto) 0 SARS-CoV-2 (PCR) Negative Blood Type A Positive Antibody Screen Negative Assessment and Plan Assessment and Plan Assessment and Plan narrative: 26yo at 39w3d here in active labor. GBS negative, Rh positive. uncomplicated. - FHT reassuring - Expectant management, anticipate - Epidural in place for pain control - GBS negative, no prophylaxis
[2022-06-21] MEDS: ONDANSETRON 4 MG/2 ML INJ IV (09:25)
[2022-06-21 09:45] VITALS: BP 123/93
--- NOTE | 2022-06-21 10:32 | PM.OBPRVD ---
Labor & Delivery Delivery date: 06/21/22 Intrapartal Events: None Cervical ripening method: none Induction method: none Delivery augmentation: rupture of membranes Delivery monitor: external FHT and external uterine Route of delivery: Episiotomy description: None L&D Laceration Description: Perineal - 2nd Degree Delivery repair: vicryl Quantitative Blood Loss: 50 Anesthesia Type: Epidural Complications: None Narrative: PROCEDURE: at 39w3d presented in active labor and was admitted to Labor and Delivery. The patient progressed through the 1st stage over 8 hours. Pain was controlled with an epidural. AROM was performed when the patient was complete with production of clear fluid. The patient progressed through the 2nd stage over 1 hour and delivered a viable female infant with APGARs 8/9 at 10:06 via without complications. The cord was cut and clamped after it stopped pulsating. The perineum and vagina were inspected with small second degree laceration repaired with 3-O Vicryl. PREPROCEDURE DIAGNOSIS: Intrauterine at 39w3d GBS negative RH positive POSTPROCEDURE DIAGNOSIS: Intrauterine at 39w3d, delivered Same as preprocedure Baby 1: gender: Female Presentation: vertex Position: Right Occiput Anterior Placenta delivery description: Spontaneous Cord Vessel Description: 3 Vessels score (1 min): 8 score (5 min): 9 weight: 7 lb 6.485 oz Plan for aftercare: Routine care
[2022-06-21] MEDS: ACETAMINOPHEN 325 MG TABLET 650 MG PO (14:20)
[2022-06-21] MEDS: IBUPROFEN 600 MG TABLET PO (14:21)
[2022-06-21] MEDS: DERMOPLAST SPRAY 20% 60 ML 1 SPRAY TOP (14:22)
[2022-06-22] MEDS: ACETAMINOPHEN 325 MG TABLET 650 MG PO ×2 (00:01→06:25)
[2022-06-22] MEDS: IBUPROFEN 600 MG TABLET PO ×2 (06:25)
--- NOTE | 2022-06-22 08:40 | P.DS_ITS ---
Discharge Providers Provider Date of admission: 06/21/22 07:05 Discharge Date: 06/22/22 Primary care physician: Alonzo CHAVES Provider Consults: 06/22/22 10:31 Consult to [employer]room Keeper Routine Comment: Discharge provider: Jacque Lopez MD Summary Hospital Course Date Patient Seen: 06/22/22 Time Patient Seen: 08:40 Diagnoses: 39w3d gestation GBS negative Rh positive Hospital Course: The pt presented in active labor. She progressed to complete with an epidural for pain control. AROM was performed with clear fluid present. She had an of a viable baby girl without complications at 10:06am on 06/21/22. A second degree perineal laceration was then repaired. , there were no complications. At the time of discharge she was voiding, ambulating, and passing flatus without difficulty. Her lochia was decreasing appropriately. Her pain was well controlled. She was with good latch. She will f/u in 6 weeks for check. She plans on [] for contraception. Peripartum Data Infant Delivery Method: Natural Vaginal Laceration Description: Perineal - 2nd Degree Episiotomy description: None Procedures: Spontaneous vaginal delivery complications: none [place] 1: Gender: Female Disposition of : home Discharge Diagnosis (1) Status post vaginal delivery: Status: Acute Status at Discharge Cognitive/behavioral status at discharge: oriented Functional status at discharge: independent ambulation Overall status at discharge: patient is progressing back to baseline Time Spent with Patient Time attestation: Total time spent providing and/or coordinating discharge services: Objective Labs Result Diagrams: 06/21/22 07:30 Exam Narrative Exam Narrative: Gen: NAD, sitting comfortably in bed, appears well CV: RRR, no murmurs Resp: clear to auscultation bilaterally Abd: soft, appropriately tender, fundus firm and below the umbilicus, nondistended Ext: no edema Discharge Plan Discharge Plan Patient Disposition: Home Discharge orders & Medications Prescriptions: New acetaminophen 325 mg Tablet 650 mg PO Q6HR PRN (Reason: Pain, Mild (1-3)) Qty: 30 0RF docusate sodium 100 mg Capsule 100 mg PO DAILY Qty: 30 0RF ibuprofen 600 mg Tablet 600 mg PO Q6HR PRN (Reason: Pain, Mild (1-3)) Qty: 30 0RF Continued prenat.vits,bethany,[id number] Tablet 1 tab PO DAILY Follow up/Referrals: ProviderAlonzo [Primary Care Provider] - Jacque Lopez MD [Physician] - 6 Weeks Diet/Activity/Treatments Diet: Diet as Tolerated and Regular Skin/Wound/Dressing Care Report to your healthcare provider any signs of infection, such as:: chills, fever, increased pain and unusual drainage Visit Report/Discharge Packet Instructions: DI for Labor and Delivery, Vaginal Visit Report Forms: Patient Portal/API, Stroke Signs & Symptoms Discharge Data Primary Care Provider: Alonzo Peña Attending Provider: Klever Frank Admit Date/Time: 06/21/22 07:05
[2022-06-22 08:50] VITALS: BP 130/80; PULSE 88; RESP 17; TEMP 36.6
[2022-06-22] MEDS: PRENATAL VIT,CALC/IRON/FOLIC 1 TABLET 1 TAB PO (09:14)
[2022-06-22] MEDS: DOCUSATE 100 MG CAPSULE PO (09:14)
[2022-06-22 09:51] VITALS: BP 130/80; PULSE 88; RESP 17; TEMP 36.6
== END 2022-06-22 10:35 | disposition home or self-care (01) | DRG 807 ==
PROVIDERS: Family Medicine; Admitting Provider Obstetrics & Gynecology; Referring Provider Obstetrics & Gynecology; Visit Provider Obstetrics & Gynecology
DX: O70.1 Second degree perineal laceration during delivery (principal); Z37.0 Single live birth; Z3A.39 39 weeks gestation of pregnancy
CPT/HCPCS: 01967; 36415; 59050; 59400; 85025; 86850; 86900; 86901; 87635; C9803; G0379; J2405; J3010